=== PATIENT | male | born 1985 | race Caucasian/White ===

== ENCOUNTER 2021-01-07 23:10 | Emergency (ER) | payer OTHER, SELFPAY ==
[2021-01-07 23:26] VITALS: BP 142/88; PULSE 76; RESP 18; TEMP 36.4; O2SAT 99; BMI 66.5
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
[2021-01-08] MEDS: Lidocaine HCl 2 % 20 ML VIAL 5 ML SUBCUT (01:14)
[2021-01-08] MEDS: oxyCODONE HCl Immed Release 5 MG TABLET PO (02:02)
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
== END 2021-01-08 02:03 | disposition home or self-care (01) ==
PROVIDERS: Emergency Provider Emergency Medicine Emergency Medical Services
DX: S01.01XA Laceration without foreign body of scalp, initial encounter (principal); S01.81XA Laceration without foreign body of other part of head, initial encounter; Y00.XXXA Assault by blunt object, initial encounter; Y93.9 Activity, unspecified; Y92.019 Unspecified place in single-family (private) house as the place of occurrence of the external cause; Y99.9 Unspecified external cause status
CPT/HCPCS: 12001; 99284

== ENCOUNTER 2022-02-28 13:22 | Emergency (ER) | payer OTHER, SELFPAY ==
--- NOTE | ~2022-02-28 | XR_ITS ---
EXAMINATION: XR FOOT, LEFT CLINICAL INFORMATION: Foot pain COMPARISON: None TECHNIQUE: AP, lateral, and oblique views of the left foot. FINDINGS: The bones and soft tissues are normal. No fracture. Alignment is anatomic. Joint spaces are maintained. XR/XR foot LT 2V IMPRESSION: No radiographic evidence of acute fracture. Bone alignments are satisfactory.
[2022-02-28 13:58] VITALS: BP 122/80; PULSE 81; RESP 18; TEMP 37.2; O2SAT 96; BMI 29.3
--- NOTE | 2022-02-28 16:58 | ED.LOWEXIN ---
HPI - Extremity Injury (Lower) General Chief Complaint: Extremity Injury, Lower Stated Complaint: top of l foot pain Time Seen by Provider: 02/28/22 16:48 Source: patient Mode of arrival: ambulatory Limitations: no limitations History of Present Illness HPI Narrative: Patient presents emergency department for evaluation of dorsal left foot pain. Sudden onset today. Previously he was experiencing low back/groin pain thigh pain after playing basketball yesterday. 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 He denies any numbness or tingling. Denies any known specific injury to the foot or prior injury. Denies any redness, swelling, or rashes. Pain is made worse with weight-bearing whether he is wearing shoes or not. Related Data Previous Rx's Medication Instructions Recorded ibuprofen 600 mg tablet 600 mg PO Q8H PRN pain #20 tabs 01/08/21 naproxen 500 mg tablet 500 mg PO BID PRN pain #14 tabs 02/28/22 Allergies Allergy/AdvReac Type Severity Reaction Status Date / Time hazelnut Allergy Unknown HIVES Verified 02/28/22 13:58 Review of Systems Review of Systems: Musculoskeletal: Positive foot pain Yes all other systems are reviewed and are negative PMFSH Past Medical History Attestation statement: The following information was validated with the patient. Source: old records reviewed Medical History Asthma Surgical History H/O tooth extraction Social History Social History Alcohol intake: current Alcohol intake frequency: a few times a month Patient Tobacco Use Status: Never used Tobacco Substance Use Type: Marijuana Advance Directives: No Advance Directives Information Provided: No Physical Exam Vital Signs: Vital Signs: Last Vital Signs Temp 98.9 F 02/28/22 13:58 Pulse 81 02/28/22 13:58 Resp 18 02/28/22 13:58 BP 122/80 02/28/22 13:58 Pulse Ox 96 02/28/22 13:58 O2 Del Method 02/28/22 13:58 BMI result Body Mass Index 29.3 Vital signs have been reviewed as normal and appeared to be correct. Blood pressure normal.? Heart rate normal.? Respiration rate normal. Temperature normal.? Oxygen saturation normal. Appearance: Alert.?Oriented to person, place and time. No acute distress.?Normal affect. Eyes: Pupils equal, round and reactive to light.? ENT: Pharynx normal.?? Neck: Normal inspection.? Neck supple.?? CVS: Heart sounds normal. Normal heart rate and rhythm.? Pulses normal.?? Respiratory: No respiratory distress.? Lung sounds clear to auscultation bilaterally?? Abdomen: Soft and non-tender. Normoactive bowel sounds. ? Skin: Skin warm and dry.? Normal skin color.? ?? Extremities: No lower extremity edema.? Left foot with no obvious deformity, redness, swelling, or rash. Point tenderness along the 2nd and 3rd metatarsal Neuro: Moves all extremities spontaneously. Sensation intact bilaterally. No Motor deficits Ambulates with antalgic gait. Course Course Course Narrative: Patient is a 36-year-old male presenting for evaluation of dorsal left foot pain made worse with weight-bearing. Denies any known particular injury. He was playing basketball yesterday, and previously was experiencing lower back/groin pain radiating into the thigh and down his leg. At this time he only has foot pain. He is overall well appearing. No obvious deformity, erythema, warmth, or rash noted to the foot. Is able to flex and extend the digits of the left foot. He does have point tenderness along the 2nd and 3rd metatarsal. Discussed plan of care for rest, ice, compression, elevation, naproxen as needed for pain, shoe insert, outpatient follow-up with his primary care provider as needed. Discussed worrisome signs and symptoms to return back to the emergency department for. All questions were answered, he was able to ambulate out of the emergency department with an antalgic gait. MDM - Extremity Injury (Lower) Medical Records Attestation: I reviewed the patient's medical records. Imaging Data XR foot: Radiologist's impression: XR/XR foot LT 2V IMPRESSION: No radiographic evidence of acute fracture. ? Bone alignments are satisfactory. Discharge Plan Discharge Clinical Impression: Metatarsalgia of left foot Patient Disposition: Home, Self-Care Instructions: Metatarsalgia (DC) Additional Instructions: As we discussed the x-ray read foot does not show anything broken or dislocated. As we discussed, the pain you are experiencing may be a nerve type of pain radiating from your back. You should be sure to rest, apply ice to this area over the next few days, you can use compression with an Abdullahi bandage, and naproxen as needed for pain. Do not take additional [id number] medication with this such as ibuprofen/Motrin, Aleve, or aspirin. Follow-up with your primary care provider as needed for continued or worsening pain. Prescriptions: New naproxen 500 mg tablet 500 mg PO BID PRN (Reason: pain) Qty: 14 0RF No Action ibuprofen 600 mg tablet 600 mg PO Q8H PRN (Reason: pain) Qty: 20 0RF Stand Alone Forms: Work/School Release
== END 2022-02-28 17:43 | disposition home or self-care (01) ==
PROVIDERS: Emergency Provider Internal Medicine; PCP Physician Assistant Medical
DX: M77.42 Metatarsalgia, left foot (principal)
CPT/HCPCS: 73620; 99282; 99283